=== PATIENT | female | born 1980 | race Caucasian/White ===

== ENCOUNTER → 2018-09-05 | Outpatient (CLI) | payer MEDICAID ==
[2016-11-18 11:15] VITALS: BMI 29.9
[~2018-09-05] MED LIST: ACET-1718 PO; ACET-1966 PO; AMPH20TA18 PO; BACL-51 PO; CALC-515 PO; CLON-1 PO; DUL20 PO; HYDR-317 PO; HYDR50SY; IBUP800T37 PO; MORP1SYR2; NIFE10CA38 PO
--- NOTE | 2018-09-05 16:18 | RADIOLOGY IMAGING REPORT ---
FACILITY: [facility] PATIENT NAME: Deja Sanchez : 1980 MR: [id number] V: [id number] EXAM DATE: ORDERING PHYSICIAN: EDVIN MARTINEZ TECHNOLOGIST: Location: [facility] [place] Patient: Deja Sanchze : 1980 Visit/Account:[id number] Date of Sevice: 09/05/2018 TRANSVAGINAL NON-OB HISTORY: Vaginal bleeding since double shot in April TECHNIQUE: Transvaginal ultrasound pelvis. COMPARISON: None. FINDINGS: Uterus: ; 8.1 cm length x 4 cm AP x 6 cm transverse. Myometrium: Unremarkable. Endometrium: Unremarkable; double thickness 8.2 mm. Cervix: There is shadowing extending from the endocervical canal may be related to prior study proced ure. Ovaries: Right - 4.1 x 2.5 x 2.8 cm and contains a 1.9 cm simple cyst Left - 3.5 x 3.1 x 1.6 cm Blood flow is documented in each ovary by duplex Doppler ultrasound. Adnexa: Grossly unremarkable. Free pelvic fluid: None. IMPRESSION: 1.9 cm simple right ovarian cyst There is shadowing within the endocervical canal which may be related to prior procedure, clinical co rrelation however needed Report Dictated By: Guerline Recio MD at 09/05/2018 4:12 PM Report E-Signed By: Guerline Recio MD at 09/05/2018 4:14 PM WSN:[id number]
== END ==
LOC: US 15:06
PROVIDERS: ATTEND Nurse Practitioner
DX: N83.291 Other ovarian cyst, right side (principal)
CPT/HCPCS: 76830